=== PATIENT | male | born 1945 | race Caucasian/White ===

== ENCOUNTER 2018-05-23 00:02 | Emergency (ER) | payer BC ==
[~2018-05-23] VITALS: Ht 177.8 cm; Wt 102.1 kg
[2018-05-23 00:05] VITALS: BP 120/68
--- NOTE | 2018-05-23 00:05 | NUR ---
BIB [facility]. ETOH AND MEDICAL CLEARANCE FOR HTN. BP 120/68. SLURRED SPEECH. SMEELS OF STRONG ALCOHOL. VSS. ER MD AWARE. [facility] AT CHAIR SIDE. CONTINUE TO MONITOR.
--- NOTE | 2018-05-23 00:05 | NUR ---
[facility], MEDICAL CLEARANCE FOR HTN. AMBULATED TO CHAIR B.
[2018-05-23 02:05] VITALS: BP 118/70
--- NOTE | 2018-05-23 02:05 | NUR ---
Patient discharged with v/s stable. Written and verbal after care instructions given and explained. Patient verbalized understanding. Police with in custody. All questions addressed prior to discharge. Advised to follow up with PMD.
== END 2018-05-23 02:05 ==
LOC: MED 00:02
DX: I10 Essential (primary) hypertension (principal); F10.129 Alcohol abuse with intoxication, unspecified; Z88.0 Allergy status to penicillin; Z02.89 Encounter for other administrative examinations
CPT/HCPCS: 99283